=== PATIENT | female | born 1995 | race Caucasian/White ===

== ENCOUNTER 2018-09-10 18:57 | Emergency (ER) | payer OTHER ==
[2018-09-10 19:45] VITALS: RESP 16
[2018-09-10 19:46] VITALS: O2SAT 98
[2018-09-10 19:48] VITALS: PULSE 88; TEMP 98.7
[2018-09-10 20:02] VITALS: BP 126/48
== END 2018-09-10 19:57 | disposition home or self-care (01) | DRG 103 ==
LOC: ED 18:57
DX: R51 Headache (principal); V49.9XXA Car occupant (driver) (passenger) injured in unspecified traffic accident, initial encounter; Y93.29 Activity, other involving ice and snow
CPT/HCPCS: 99283